=== PATIENT | female | born 1960 ===

== ENCOUNTER 2018-05-28 10:00 | Outpatient (CLI) | payer OTHER ==
[~2018-05-28] VITALS: Ht 162.6 cm; Wt 52.2 kg
== END 2018-05-28 10:15 | disposition home or self-care (01) ==
LOC: OFIC 805 10:00
DX: H90.3 Sensorineural hearing loss, bilateral (principal); H93.13 Tinnitus, bilateral; H61.23 Impacted cerumen, bilateral

== ENCOUNTER 2018-07-24 09:07 | Outpatient (CLI) | payer OTHER ==
[~2018-07-24] VITALS: Ht 152.4 cm; Wt 52.2 kg
== END 2018-07-24 09:15 | disposition home or self-care (01) ==
LOC: OFIC 805 09:07
DX: H93.13 Tinnitus, bilateral (principal)

== ENCOUNTER 2019-06-18 09:20 | Outpatient (CLI) | payer OTHER | END 2019-06-18 09:32 | disposition home or self-care (01) | LOC: RAD 09:20 | DX: M25.511 Pain in right shoulder (principal) ==